=== PATIENT | female | born 1965 | race Caucasian/White ===

== ENCOUNTER 2016-10-19 19:35 | Emergency (ER) | payer MEDICAID ==
[2016-10-19 19:47] VITALS: TEMP 98.2
[2016-10-19] MEDS ORDERED: NS 1,000 ML IV ONE (19:59)
[2016-10-19] MEDS ORDERED: PANTOPRAZOLE SODIUM 40 MG VIAL IVP ONE (20:00)
[2016-10-19] MEDS ORDERED: PROMETHAZINE HCL 25 MG/ML INJ IVP ONE (20:00)
[2016-10-19 20:15] LABS: % IMMATURE GRANULYOCYTES 1.3 % (0.0-1.1); ABSOLUTE IMMATURE GRANULOCYTES 0.12 10^3/uL (0.00-0.10); ADD DIFF? NO; ADD MORPH? NO; ADD SCAN? NO; ALANINE AMINOTRANSFERASE 35 IU/L (9-52); ALBUMIN 4.7 g/dL (3.5-5.0); ALKALINE PHOSPHATASE 124 IU/L (38-126); ANION GAP 13 mEq/L (8-16); ASPARTATE AMINOTRANSFERASE 33 IU/L (14-46); ATYPICAL LYMPHOCYTE FLAG 0 (0-99); BILIRUBIN,TOTAL 0.9 mg/dL (0.1-1.4); BILIRUBIN-CONJUGATED 0.3 mg/dL (0.0-0.5); BILIRUBIN-UNCONJUGATED 0.6 mg/dL (0.0-1.1); CALCIUM 10.2 mg/dL (8.5-10.4); CARBON DIOXIDE 19 mEq/l (22-31); CHLORIDE 110 mEq/L (97-110); CREATININE 0.6 mg/dL (0.6-1.0); FRAGMENT RBC FLAG 0 (0-99); GLOMERULAR FILTRATION RATE > 60; GLUCOSE 124 mg/dL (70-100); HEMATOCRIT 43.4 % (38.0-47.0); HEMOGLOBIN 15.1 g/dL (12.6-16.3); LEFT SHIFT FLG 20 (0-99); LIPEMIA HEMOLYSIS FLAG 90 (0-99); MEAN CELL HEMOGLOBIN 33.6 pg (27.9-34.1); MEAN CELL HEMOGLOBIN CONCENTR. 34.8 g/dL (32.4-36.7); MEAN CELL VOLUME 96.4 fL (81.5-99.8); MEAN PLATELET VOLUME 10.3 fL (8.7-11.7); PLATELET CLUMPS FLAG 0 (0-99); PLATELET COUNT 252 10^3/uL (150-400); RED CELL DISTRIBUTION WIDTH 12.7 % (11.5-15.2); SODIUM 142 mEq/L (134-144); TOTAL PROTEIN 7.5 g/dL (6.3-8.2)
[2016-10-19] MEDS ORDERED: LORazepam 2 MG/ML INJ IVP ONE (21:41)
[2016-10-19] MEDS ORDERED: ONDANSETRON 4 MG/2 ML VIAL IVP ONE (21:43)
[2016-10-19 22:52] VITALS: PULSE 52; RESP 16
--- NOTE | 2016-10-19 23:04 | EDPHY ---
H & P Stated Complaint: Nausea, vomiting and diarrhea since 8am. Time Seen by Provider: 10/19/16 19:42 HPI/ROS: Chief complaint: Nausea, vomiting and diarrhea History of present illness: This is a 51-year-old female who presents to the emergency department for evaluation of nausea, vomiting and diarrhea. Patient reports the onset of symptoms this morning. Initially nausea and vomiting but now diarrhea. She states symptoms have been persistent. She has had associated abdominal cramping. She denies precipitating factors. She denies alleviating factors. She denies other associated signs or symptoms including no fevers, no blood in the vomit or stools. No report of sick contacts, antibiotic use or foreign travel. She has had problems with nausea vomiting and diarrhea in the past. She does have Zofran and Phenergan at home but cannot keep the medications down. Review of systems: A 10 point review of systems was obtained and other than described above was negative - Personal History Current Tetanus Diphtheria and Acellular Pertussis (TDAP): Yes - Medical/Surgical History Hx Asthma: No Hx Chronic Respiratory Disease: No Hx Diabetes: No Hx Cardiac Disease: No Hx Renal Disease: No Hx Cirrhosis: No Hx Alcoholism: No Hx HIV/AIDS: No Hx Splenectomy or Spleen Trauma: No Other PMH: Chronic abdominal pain, chronic back pain, and . ADHD. Depression. Gerd. - Social History Smoking Status: Current some day smoker - Physical Exam Exam: General Appearance: Alert, nontoxic. Eyes: Pupils equal and round no pallor or injection. ENT, Mouth: Mucous membranes moist. Respiratory: There are no retractions, lungs are clear to auscultation. Cardiovascular: Regular rate and rhythm. Gastrointestinal: Abdomen is soft and non tender, no masses, bowel sounds normal. Neurological: Alert and oriented. Strength and sensation intact and symmetrical. Skin: Warm and dry, no rashes. Musculoskeletal: Neck is supple non tender. Extremities are symmetrical, full range of motion. Psychiatric: Patient is oriented X 3, there is no agitation. Constitutional: Initial Vital Signs Temperature (C) 36.8 C 10/19/16 19:43 Heart Rate 55 L 10/19/16 19:43 Respiratory Rate 20 10/19/16 19:43 Blood Pressure 98/84 H 10/19/16 19:43 O2 Sat (%) 97 10/19/16 19:43 O2 Delivery Mode Room Air Allergies/Adverse Reactions: No Known Allergies Allergy (Unverified 01/19/13 08:05) Home Medications: Medication Instructions Recorded ALPRAZolam [Xanax XR 3mg] 3 mg PO DAILY 03/17/11 Dextroamphetamine/Amphetamine 30 mg PO BID 03/17/11 [Adderall Xr 30 mg Capsule] Duloxetine HCl [Cymbalta] 60 mg PO DAILY 03/17/11 Omeprazole [Prilosec 40 mg] 30 mg PO DAILY 03/17/11 Promethazine HCl [Phenergan] 25 mg PO DAILY 03/17/11 Lidoderm 5% Patch (RX) 01/19/13 Ondansetron Odt [Zofran Odt] 4 mg PO Q4PRN PRN #2 tab 01/19/13 Voltaren 01/19/13 Promethazine 25Mg Supp Prepk#4 1 btl TAKEHOME QID #4 btl 10/19/16 [Phenergan 25Mg Supp Prepack#4] Medical Decision Making ED Course/Re-evaluation: Patient is discussed with my secondary supervising physician Dr. Arcenio Freedman. Patient presents to the emergency department for nausea, vomiting and diarrhea with abdominal pain. Presentation she is nontoxic. Afebrile and vital signs are stable. Physical exam is unremarkable including benign serial abdominal exams were performed during her stay in the emergency room. Blood studies are unremarkable. I do not believe imaging studies are warranted at this time given these findings and the fact she has had similar symptoms in the past. She has been symptomatically treated. She is tolerating oral challenges. She will be discharged home. She is given a prepack of Phenergan suppositories in case symptoms recur and she cannot keep her medications down. She is to follow up with her primary care doctor for recheck. Return precautions are given. Differential Diagnosis: Included but not limited to gastritis, gastroenteritis, biliary tract disease, pancreatitis, colitis - Data Points Laboratory Results: Laboratory Results 10/19/16 19:42 10/19/16 19:42 10/19/16 10/19/16 10/19/16 19:42 19:42 19:42 WBC 9.07 10^3/uL 10^3/uL (3.80-9.50) RBC 4.50 10^6/uL 10^6/uL (4.18-5.33) Hgb 15.1 g/dL g/dL (12.6-16.3) Hct 43.4 % % (38.0-47.0) MCV 96.4 fL fL (81.5-99.8) MCH 33.6 pg pg (27.9-34.1) MCHC 34.8 g/dL g/dL (32.4-36.7) RDW 12.7 % % (11.5-15.2) Plt Count 252 10^3/uL 10^3/uL (150-400) MPV 10.3 fL fL (8.7-11.7) Neut % (Auto) 85.3 % H % (39.3-74.2) Lymph % (Auto) 9.4 % L % (15.0-45.0) Evans % (Auto) 3.6 % L % (4.5-13.0) Eos % (Auto) 0.0 % L % (0.6-7.6) Baso % (Auto) 0.4 % % (0.3-1.7) Nucleat RBC Rel Count 0.0 % % (0.0-0.2) Absolute Neuts (auto) 7.73 10^3/uL H 10^3/uL (1.70-6.50) Absolute Lymphs (auto) 0.85 10^3/uL L 10^3/uL (1.00-3.00) Absolute Monos (auto) 0.33 10^3/uL 10^3/uL (0.30-0.80) Absolute Eos (auto) 0.00 10^3/uL L 10^3/uL (0.03-0.40) Absolute Basos (auto) 0.04 10^3/uL 10^3/uL (0.02-0.10) Absolute Nucleated RBC 0.00 10^3/uL 10^3/uL (0-0.01) Immature Gran % 1.3 % H % (0.0-1.1) Immature Gran # 0.12 10^3/uL H 10^3/uL (0.00-0.10) Sodium 142 mEq/L mEq/L (134-144) Potassium 4.0 mEq/L mEq/L (3.5-5.2) Chloride 110 mEq/L mEq/L (97-110) Carbon Dioxide 19 mEq/l L mEq/l (22-31) Anion Gap 13 mEq/L mEq/L (8-16) BUN 11 mg/dL mg/dL (7-23) Creatinine 0.6 mg/dL mg/dL (0.6-1.0) Estimated GFR > 60 Glucose 124 mg/dL H mg/dL (70-100) Calcium 10.2 mg/dL mg/dL (8.5-10.4) Total Bilirubin 0.9 mg/dL mg/dL (0.1-1.4) Conjugated Bilirubin 0.3 mg/dL mg/dL (0.0-0.5) Unconjugated Bilirubin 0.6 mg/dL mg/dL (0.0-1.1) AST 33 IU/L IU/L (14-46) ALT 35 IU/L IU/L (9-52) Alkaline Phosphatase 124 IU/L IU/L (38-126) Total Protein 7.5 g/dL g/dL (6.3-8.2) Albumin 4.7 g/dL g/dL (3.5-5.0) Lipase 18.0 IU/L L IU/L (23-300) Beta HCG, Qual NEGATIVE Medications Given: Discontinued Medications Fentanyl (Sublimaze) 50 mcg IVP EDNOW ONE Stop: 10/19/16 23:25 Last Admin: 10/19/16 23:47 Dose: Not Given Sodium Chloride (Ns) 1,000 mls @ 0 mls/hr IV EDNOW ONE; Wide Open PRN Reason: Protocol Stop: 10/19/16 20:00 Last Admin: 10/19/16 20:27 Dose: 1,000 mls Lorazepam (Ativan Injection) 1 mg IVP EDNOW ONE Stop: 10/19/16 21:42 Last Admin: 10/19/16 22:15 Dose: 1 mg Ondansetron HCl (Zofran) 4 mg IVP EDNOW ONE Stop: 10/19/16 21:44 Last Admin: 10/19/16 22:15 Dose: 4 mg Pantoprazole Sodium (Protonix) 40 mg IVP EDNOW ONE Stop: 10/19/16 20:01 Last Admin: 10/19/16 20:27 Dose: 40 mg Promethazine HCl (Phenergan) 12.5 mg IVP EDNOW ONE Stop: 10/19/16 20:01 Last Admin: 10/19/16 20:27 Dose: 12.5 mg Promethazine HCl (Phenergan 25mg Supp Prepack#4) 1 btl TAKEHOME EDNOW ONE Stop: 10/19/16 23:06 Last Admin: 10/19/16 23:47 Dose: 1 btl Departure - Departure Disposition: Home, Routine, Self-Care Clinical Impression: Vomiting and diarrhea Condition: Good Instructions: Acute Nausea and Vomiting (ED), Acute Diarrhea (ED) Additional Instructions: Follow-up with your primary care doctor for recheck. If symptoms worsen or new symptoms develop, return to the emergency room for recheck. Referrals: ZORAIDA MARY [Primary Care Provider] - As per Instructions Prescriptions: Promethazine 25Mg Supp Prepk#4 [Phenergan 25Mg Supp Prepack#4] 1 btl TAKEHOME QID #4 btl
[2016-10-19] MEDS ORDERED: PROMETHAZINE 25MG SUPP PREPK#4 BTL TAKEHOME ONE (23:05)
[2016-10-19] MEDS ORDERED: fentaNYL 100 MCG/2 ML INJ IVP ONE (23:24)
[2016-10-19 23:50] VITALS: BP 142/75; O2SAT 94
== END 2016-10-20 00:06 | disposition home or self-care (01) ==
LOC: EDUNIT#
DX: R19.7 Diarrhea, unspecified (principal); R11.10 Vomiting, unspecified; F17.200 Nicotine dependence, unspecified, uncomplicated; E86.9 Volume depletion, unspecified
CPT/HCPCS: 96374; J2060; J2405; J2550; J3010